=== PATIENT | male | born 1980 | race Caucasian/White ===

== ENCOUNTER 2019-04-08 14:53 | Inpatient (IN) | payer MEDICAID, OTHER ==
[~2019-04-08] VITALS: Ht 172.7 cm; Wt 97.7 kg
[2019-04-08 16:29] LABS: APPEARANCE,URINE CLEAR (CLEAR); BILIRUBIN,URINE NEGATIVE (NEGATIVE); GLUCOSE, URINE (UA) NEGATIVE (NEGATIVE); KETONES,URINE NEGATIVE (NEGATIVE); LEUKOCYTE ESTERASE ,URINE NEGATIVE (NEGATIVE); NITRATE,URINE NEGATIVE (NEGATIVE); OCCULT BLOOD,URINE NEGATIVE (NEGATIVE); PROTEIN,URINE NEGATIVE (NEGATIVE); UROBILINOGEN,URINE 0.2 mg/dL (<=1.0)
[2019-04-08 16:35] LABS: AMPHET/METH SCREEN,URINE NEGATIVE (NEGATIVE); BARBITURATE SCREEN, URINE NEGATIVE (NEGATIVE); BENZODIAZEPINES SCREEN,URINE NEGATIVE (NEGATIVE); CANNABINOID SCREEN,URINE NEGATIVE (NEGATIVE); COCAINE SCREEN,URINE NEGATIVE (NEGATIVE); METHADONE SCREEN, URINE NEGATIVE (NEGATIVE); OPIATE SCREEN,URINE NEGATIVE (NEGATIVE)
[2019-04-08 16:37] LABS: PHENCYCLIDINE SCREEN,URINE NEGATIVE (NEGATIVE)
[2019-04-08 16:44] LABS: BASOPHILS % (AUTO) 0.7 % (0.0-2.0); EOSINOPHILS % (AUTO) 0.4 % (1.0-6.0); HEMATOCRIT 47.2 % (41-53); HEMOGLOBIN 15.7 g/dL (13.5-17.5); LYMPHOCYTES # (AUTO) 1.1 K/uL (1.0-4.8); LYMPHOCYTES % (AUTO) 25.1 % (22.0-44.0); MEAN CORPUSCULAR HEMOGLOBIN 30.1 pg (26.0-34.0); MEAN CORPUSCULAR HGB CONC 33.3 G/dL (31.0-37.0); MEAN CORPUSCULAR VOLUME 90 fL (80-100); MONOCYTES # (AUTO) 0.4 K/uL (0.1-1.0); MONOCYTES % (AUTO) 8.9 % (2.0-9.0); NEUTROPHILS # (AUTO) 2.8 K/uL (1.8-7.7); NEUTROPHILS % (AUTO) 64.9 % (40.0-70.0); PLATELET COUNT (AUTO) 187 K/uL (150-450); RED BLOOD CELL COUNT(AUTO) 5.22 MIL/uL (4.50-5.90); RED CELL DISTRIBUTION WIDTH 14.3 % (11.5-14.5)
[2019-04-08 17:02] LABS: ANION GAP 11 mmol/L (8-16); CALCIUM, TOTAL 8.6 mg/dL (8.8-10.5); CARBON DIOXIDE 27 mmol/L (22-29); CHLORIDE 106 mmol/L (98-107); CREATININE 1.23 mg/dL (0.60-1.30); GLOMERULAR FILTR. RATE CALC > 60 mL/min (>60); GLUCOSE,RANDOM 101 mg/dL (70-110); POTASSIUM 3.9 mmol/L (3.5-5.1); SODIUM SERUM 144 mmol/L (136-145); UREA NITROGEN, BLOOD 11 mg/dL (7-18)
[2019-04-08 17:09] LABS: ALANINE AMINOTRANSFERASE 31 U/L (12-78); ALBUMIN 4.1 g/dL (3.4-5.0); ALKALINE PHOSPHATASE 70 U/L (46-116); ASPARTATE AMINOTRANSFERASE 35 U/L (15-37); BILIRUBIN,TOTAL 0.3 mg/dL (0.1-1.0); TOTAL PROTEIN, SERUM 7.5 g/dL (6.4-8.2)
[2019-04-08] MEDS ORDERED: HALOPERIDOL 5 MG TABLET PO PRN (17:45)
[2019-04-08] MEDS ORDERED: LORazepam 2 MG TABLET PO PRN (17:45)
[2019-04-08] MEDS ORDERED: IBUPROFEN 400 MG TABLET PO PRN (18:00)
[2019-04-08] MEDS ORDERED: ACETAMINOPHEN 325 MG TABLET PO PRN (18:00)
[2019-04-09 07:32] LABS: BASOPHILS % (AUTO) 0.3 % (0.0-2.0); EOSINOPHILS % (AUTO) 0.2 % (1.0-6.0); HEMATOCRIT 47.6 % (41-53); HEMOGLOBIN 15.7 g/dL (13.5-17.5); LYMPHOCYTES # (AUTO) 0.7 K/uL (1.0-4.8); LYMPHOCYTES % (AUTO) 12.2 % (22.0-44.0); MEAN CORPUSCULAR HEMOGLOBIN 29.9 pg (26.0-34.0); MEAN CORPUSCULAR VOLUME 91 fL (80-100); MONOCYTES # (AUTO) 0.4 K/uL (0.1-1.0); MONOCYTES % (AUTO) 7.2 % (2.0-9.0); NEUTROPHILS # (AUTO) 4.4 K/uL (1.8-7.7); NEUTROPHILS % (AUTO) 80.1 % (40.0-70.0); PLATELET COUNT (AUTO) 163 K/uL (150-450); RED BLOOD CELL COUNT(AUTO) 5.25 MIL/uL (4.50-5.90); RED CELL DISTRIBUTION WIDTH 13.8 % (11.5-14.5)
[2019-04-09 07:47] LABS: HEMOGLOBIN A1C 5.5 % (4.5-6.2)
[2019-04-09 07:55] LABS: ALANINE AMINOTRANSFERASE 29 U/L (12-78); ALKALINE PHOSPHATASE 67 U/L (46-116); ANION GAP 9 mmol/L (8-16); ASPARTATE AMINOTRANSFERASE 33 U/L (15-37); BILIRUBIN,TOTAL 0.8 mg/dL (0.1-1.0); CALCIUM, TOTAL 9.1 mg/dL (8.8-10.5); CARBON DIOXIDE 28 mmol/L (22-29); CHLORIDE 107 mmol/L (98-107); CHOL/HDL RATIO 2.1 (4.2-7.3); CHOLESTEROL 173 mg/dL (131-200); CREATININE 1.15 mg/dL (0.60-1.30); GLOMERULAR FILTR. RATE CALC > 60 mL/min (>60); GLUCOSE,RANDOM 96 mg/dL (70-110); HDL CHOLESTEROL 81 mg/dL (40-60); LDL CHOL (CALC.) 83 mg/dL (0-130); POTASSIUM 4.1 mmol/L (3.5-5.1); SODIUM SERUM 144 mmol/L (136-145); THYROID STIMULATING HORMONE 0.69 uIU/mL (0.36-3.74); TOTAL PROTEIN, SERUM 7.4 g/dL (6.4-8.2); TRIGLYCERIDES 47 mg/dL (15-150); UREA NITROGEN, BLOOD 13 mg/dL (7-18)
[2019-04-09 20:17] VITALS: BP 159/96
[2019-04-09 20:19] VITALS: BP 139/96
[2019-04-09] MEDS ORDERED: CloNIDine HCL 0.1 MG TABLET PO PRN (20:45)
[2019-04-09] MEDS ORDERED: LOPERAMIDE HCL 2 MG CAPSULE PO PRN (20:45)
[2019-04-09] MEDS ORDERED: GuaiFENesin/D-METHORPHAN [SUGAR-FREE] 200-20MG/10 ML SYRUP UDCUP PO PRN (20:45)
[2019-04-09] MEDS ORDERED: MAG HYDROX/AL HYDROX/SIMETH ES 30 ML SUSPENSION UDCUP PO PRN (20:45)
[2019-04-09] MEDS ORDERED: PERMETHRIN 5% 60 GM CREAM TP ONE ×2 (20:45→22:30)
[2019-04-09] MEDS ORDERED: DOCUSATE SODIUM 100 MG CAPSULE PO PRN (20:45)
[2019-04-09] MEDS ORDERED: ONDANSETRON HCL 4 MG TABLET PO PRN (20:45)
[2019-04-09] MEDS ORDERED: ACETAMINOPHEN 325 MG TABLET PO PRN (20:45)
[2019-04-09] MEDS ORDERED: PETROLATUM,WHITE 28 GM JELLY TP PRN (20:45)
[2019-04-09] MEDS ORDERED: MAGNESIUM HYDROXIDE SUSPENSION 30 ML UDCUP PO PRN (20:45)
[2019-04-09] MEDS ORDERED: ALBUTEROL SULFATE HFA 90 MCG/PUFF 8 GM INHALER IH PRN (20:45)
[2019-04-09] MEDS ORDERED: IBUPROFEN 400 MG TABLET PO PRN (20:45)
[2019-04-09] MEDS ORDERED: NICOTINE 14 MG/24 HOUR PATCH TD PRN (20:45)
[2019-04-10] VITALS (9 sets, daily range): BP systolic 130–143; BP diastolic 66–90
[2019-04-10] MEDS ORDERED: LORazepam 2 MG TABLET PO PRN (11:00)
[2019-04-10] MEDS: HYDROCORTISONE 1% 30 GM OINTMENT TP SCH ×2 (12:14→16:43)
[2019-04-10] MEDS: ZOLPIDEM TARTRATE 10 MG TABLET PO PRN (20:54)
[2019-04-11] MEDS ORDERED: LORazepam 2 MG TABLET PO PRN (07:00)
[2019-04-11 07:16] VITALS: BP 131/85
[2019-04-11 07:18] VITALS: BP 131/85
[2019-04-11 08:05] VITALS: BP 153/79
[2019-04-11] MEDS: HYDROCORTISONE 1% 30 GM OINTMENT TP SCH ×2 (08:32→17:05)
[2019-04-11] MEDS ORDERED: AmLODIPine BESYLATE 2.5 MG TABLET PO SCH (09:00)
[2019-04-11] MEDS: LORazepam 2 MG TABLET PO SCH ×4 (09:27→21:09)
[2019-04-11] MEDS: BuPROPion HCL XL 150 MG ER TABLET PO SCH (09:27)
[2019-04-11 09:47] VITALS: BP 153/79
[2019-04-11 16:00] VITALS: BP 144/82
[2019-04-11] MEDS: ZOLPIDEM TARTRATE 10 MG TABLET PO PRN (21:07)
[2019-04-12 03:50] VITALS: BP 120/71
[2019-04-12 03:51] VITALS: BP 120/71
[2019-04-12 08:15] VITALS: BP 130/86
[2019-04-12 08:55] VITALS: BP 130/86
[2019-04-12] MEDS ORDERED: AmLODIPine BESYLATE 5 MG TABLET PO SCH (09:00)
[2019-04-12] MEDS: LORazepam 2 MG TABLET PO SCH ×2 (09:12→12:17)
[2019-04-12] MEDS: BuPROPion HCL XL 150 MG ER TABLET PO SCH (09:12)
[2019-04-12] MEDS: HYDROCORTISONE 1% 30 GM OINTMENT TP SCH (09:12)
[2019-04-12] MEDS ORDERED: AMLO-511 PO (10:35)
[2019-04-12] MEDS ORDERED: BUPR-93 PO (10:35)
[2019-04-13] MEDS ORDERED: LORazepam 1 MG TABLET PO PRN (07:00)
[2019-04-13] MEDS ORDERED: LORazepam 1 MG TABLET PO SCH (09:00)
[2019-04-14] MEDS ORDERED: LORazepam 1 MG TABLET PO PRN (07:00)
== END 2019-04-12 13:45 | disposition home or self-care (01) | DRG 751 ==
LOC: EMS 14:53 → B3A 04-09 18:16
PROVIDERS: ADMIT Psychiatry & Neurology Psychiatry; ATTEND Psychiatry & Neurology Psychiatry
DX: F33.9 Major depressive disorder, recurrent, unspecified (principal); R45.851 Suicidal ideations; E83.51 Hypocalcemia; L40.9 Psoriasis, unspecified; D72.819 Decreased white blood cell count, unspecified; F10.10 Alcohol abuse, uncomplicated; Y90.9 Presence of alcohol in blood, level not specified; F19.10 Other psychoactive substance abuse, uncomplicated; Z71.51 Drug abuse counseling and surveillance of drug abuser; Z71.41 Alcohol abuse counseling and surveillance of alcoholic
CPT/HCPCS: 83036; 84443; G0480